=== PATIENT | female | born 1990 | race Caucasian/White ===

== ENCOUNTER 2016-06-22 13:32 | Observation (INO) ==
[2016-06-22] MEDS: Ringers Solution, Lactated 1,000 ML ONE (14:07)
[2016-06-22 14:13] LABS: Basophils % 0.2 %; Eosinophils # 0.1 K/mcL (0.0-0.6); Eosinophils % 0.6 %; Hematocrit 35.7 % (35.3-44.9); Immature Granulocytes % 0.6 % (0-4); Lymphocytes % 7.8 %; Mean Corpuscular HGB Conc 36.4 g/dL (31.6-35.5); Mean Corpuscular Hemoglobin 32.5 pg (28.0-33.3); Mean Corpuscular Volume 89.3 fL (83.0-100.0); Mean Platelet Volume 9.9 fL (9.4-12.4); Monocytes # 0.7 K/mcL (0.0-1.3); Neutrophils # 11.3 K/mcL (1.6-8.9); Platelet Count 244 K/mcL (140-400); Red Cell Distribution Width 12.2 % (11.5-14.5); Segmented Neutrophils % 85.8 %
[2016-06-22 14:15] LABS: Bilirubin,Urine Negative (Negative); Blood,Urine Negative (Negative); Clarity,Urine Cloudy (Clear); Color,Urine Yellow (Yellow); Glucose,Urine (UA) Normal (Normal); Ketones,Urine Negative (Negative); Leukocyte Esterase,Urine Moderate (Negative); Nitrite,Urine Negative (Negative); PH,Urine 6.5 pH Units (5.0-8.0); Protein,Urine Negative (Neg-Trace); Specific Gravity,Urine 1.018 (1.010-1.025); Urobilinogen,Urine Normal (Normal)
[2016-06-22] MEDS ORDERED: Ringers Solution, Lactated 1,000 ML IVC SCH (14:15)
[2016-06-22 14:16] LABS: Bacteria,Urine Few per hpf (None-Few); Hyaline Casts,Urine None Seen per lpf (None-Few); RBC,Urine 0-3 per hpf (0-3); Squamous Epithelial Cell,Urine Many per lpf (None-Few)
[2016-06-22 14:38] LABS: Yeast,Urine Few per hpf (None Seen)
[2016-06-22 14:39] LABS: Renal Epithelial Cells,Urine Few per hpf (None-Few); Transitional Epi Cells,Urine Few per hpf (None-Few)
--- NOTE | 2016-06-22 14:47 | OB/GYN History & Physical ---
Date of Encounter: 06/22/16 Time of Encounter: 14:45 Assessment and Plan (1) 32 weeks gestation of Current visit: Yes Status: Acute admit for observation (2) labor in third trimester Current visit: Yes Status: Acute IV hydration EFM and toco monitoring Steroids Qualifiers: labor delivery status: without delivery Qualified Code(s): O60.03 - labor without delivery, third trimester History of Present Illness Chief complaint: contractions HPI: Ms. Corbett is a 26 year old female at 32w2d presents to labor and delivery for labor evaluation. Patient reported contractions in the office. SVE in office per Elsie CNM was 1/70%. Patient reports she has been sick with the flu and has diarrhea that started last night. Patient reports +FM, denies LOF or VB. Patient denies any urinary symptoms. Past Med Surg Social Fam HX - Past Medical History Source: patient Medical history: no medical history Psychiatric history: no psych history - Social History Smoking Status: Never smoker Alcohol use: none Drug use: none Occupational status: employed Current living situation: Home - Independent Activity Level: Independent ambulation Recent Out of Country Travel Within the Last 8 Weeks: No Exposure or Possible Exposure to Illness During Travel: No - Family History Father Adopted: [place]: Tony Living Status: Still Living Hx Family Cardiac Disorders: Yes (heart disease) Hx Family Respiratory Disorders: No Hx Family Cancer: No Hx Family GI Disorders: No Hx Family Genitourinary Disorders: No Hx Family Endocrine Disorder: No Hx Family Musculoskeletal Disorders: No Hx Family Neuromuscular Disorders: No Hx Family Neurologic Disorders: No Hx Family HEENT Disorders: No Hx Family Autoimmune Disorders: No Hx Family Reproductive Disorders: No Hx Family Psychosocial Disorders: No Hx Family Medical Disorders: No Obstetrical History - Pregnancies : 1 Para: 0 Term: 0 : 0 Ab's: 0 Livin Medications and Allergies Claritin 06/22/16 [History] Multi Tablet 06/22/16 [History] Allergies Sulfa (Sulfonamide Antibiotics) Allergy (Verified 06/22/16 13:59) Rash Review of System OB - Constitutional Constitutional ROS IM: no chills, no fatigue, no headache(s), no weakness - Cardiovascular Cardiovascular: no chest pain, no leg edema, no lightheadedness, no palpitations , no syncope - Gastrointestinal Gastrointestinal: cramping, diarrhea, no abdominal pain, no constipation, no heartburn, no vomiting - Genitourinary Genitourinary: no abnormal vaginal bleeding, no dysuria, no flank pain, no hematuria, no urinary urgency, no vaginal discharge, no vaginal odor Exam - Constitutional Constitutional: well developed, well nourished, no acute distress, average body habitus - HEENT HEENT: Normocephaly, Mucus Membranes Moist - Neck Neck exam: full ROM, supple - Lungs Respiratory exam: CTAB - Cardiovascular Cardiovascular exam: RRR, +S1, +S2 - Abdomen Abdomen: Present: bowel sounds normal, gravid, non tender - Extremities Extremities exam: normal capillary refill, normal inspection Deep Tendon Reflex Grade: 2+ Normal - Vagina Vagina: Present: normal moisture - Cervix Dilation: 1 (per elsie in office) Effacement: 70 - Uterus Uterus exam: Present: normal size, normal contour - Comments Comments: FHR 135 bpm moderate variability +15x15 accels no decels noted. Cat. 1 tracing. Irregular contractions. Results Result Diagrams: 06/22/16 14:01 Abnormal lab results WBC 13.2 K/mcL (4.3-11.1) H 06/22/16 14:01 MCHC 36.4 g/dL (31.6-35.5) H 06/22/16 14:01 Neutrophils # 11.3 K/mcL (1.6-8.9) H 06/22/16 14:01 Ur Specimen Adequacy See below A 06/22/16 13:48 Urine Clarity Cloudy (Clear) A 06/22/16 13:48 Ur Leukocyte Esterase Moderate (Negative) H 06/22/16 13:48 Urine Microscopic WBC 3-5 per hpf (0-3) H 06/22/16 13:48 Ur Squamous Epith Cells Many per lpf (None-Few) H 06/22/16 13:48 Urine Yeast Few per hpf (None Seen) H 06/22/16 13:48 Ur Culture Indicated? YES (NO) A 06/22/16 13:48 All other labs normal. - VTE Reasons for not Prescribing Prophylaxis: Treatment not Indicated - Low risk for VTE
[2016-06-22] MEDS: Betamethasone Acet/SodPhos 6 MG/ML MDV IM SCH (15:11)
--- NOTE | 2016-06-22 15:41 | Discharge Summary ---
Date of Encounter: 06/22/16 Time of Encounter: 15:40 - Discharge Diagnosis (1) 32 weeks gestation of Priority: Secondary Status: Acute Comments: patient here for observation (2) labor in third trimester Priority: Primary Status: Acute Comments: Patient given betamethasone today will receive second dose in office tomorrow Qualifiers: labor delivery status: without delivery Qualified Code(s): O60.03 - labor without delivery, third trimester - Discharge Medications Home Medications: Claritin 06/22/16 [History] Multi Tablet 06/22/16 [History] Allergies/Adverse Reactions: Allergies Sulfa (Sulfonamide Antibiotics) Allergy (Verified 06/22/16 13:59) Rash Data Procedures and tests throughout hospitalization: Laboratory Tests 06/22/16 06/22/16 13:48 14:01 WBC 13.2 H RBC 4.00 Hgb 13.0 Hct 35.7 MCV 89.3 MCH 32.5 MCHC 36.4 H RDW 12.2 Plt Count 244 MPV 9.9 Immature Gran % 0.6 Seg Neutrophils % 85.8 Lymphocytes % 7.8 Monocytes % 5.0 Eosinophils % 0.6 Basophils % 0.2 Neutrophils # 11.3 H Lymphocytes # 1.0 Monocytes # 0.7 Eosinophils # 0.1 Basophils # 0.0 Ur Specimen Adequacy See below A Urine Color Yellow Urine Clarity Cloudy A Urine pH 6.5 Ur Specific [place]cher 1.018 Urine Protein Negative Urine Glucose (UA) Normal Urine Ketones Negative Urine Blood Negative Urine Nitrite Negative Urine Bilirubin Negative Urine Urobilinogen Normal Ur Leukocyte Esterase Moderate H Urine Microscopic RBC 0-3 Urine Microscopic WBC 3-5 H Ur Squamous Epith Cells Many H Ur Transition Epith Cell Few Ur Renal Epithelial Cell Few Urine Bacteria Few Hyaline Casts None Seen Urine Yeast Few H Ur Culture Indicated? YES A Labs on day of discharge: Labs from last 24 hours 06/22/16 06/22/16 14:01 13:48 WBC 13.2 H RBC 4.00 Hgb 13.0 Hct 35.7 MCV 89.3 MCH 32.5 MCHC 36.4 H RDW 12.2 Plt Count 244 MPV 9.9 Immature Gran % 0.6 Seg Neutrophils % 85.8 Lymphocytes % 7.8 Monocytes % 5.0 Eosinophils % 0.6 Basophils % 0.2 Neutrophils # 11.3 H Lymphocytes # 1.0 Monocytes # 0.7 Eosinophils # 0.1 Basophils # 0.0 Ur Specimen Adequacy See below A Urine Color Yellow Urine Clarity Cloudy A Urine pH 6.5 Ur Specific Belcher 1.018 Urine Protein Negative Urine Glucose (UA) Normal Urine Ketones Negative Urine Blood Negative Urine Nitrite Negative Urine Bilirubin Negative Urine Urobilinogen Normal Ur Leukocyte Esterase Moderate H Urine Microscopic RBC 0-3 Urine Microscopic WBC 3-5 H Ur Squamous Epith Cells Many H Ur Transition Epith Cell Few Ur Renal Epithelial Cell Few Urine Bacteria Few Hyaline Casts None Seen Urine Yeast Few H Ur Culture Indicated? YES A Date of admission: 06/22/16 13:32 Primary care physician: PCP NO Discharging clinician: Colleen Escamilla Anticipated date of discharge: 06/22/16 - Patient Status Disposition: Home, Self-Care Condition: Good Functional capacity at discharge: independent ambulation - Discharge Instructions Follow Up With: FABIOLA,PCP [Primary Care Provider] - Elsie Holt CNM [Non-Partnered Physician] - - Diet and Activity Activity: increase activity as tolerated Diet: regular diet Hospital Course [employer] Hospital course: Patient sent over for observation due to being dilated 1 cm. Patient reports irregular contractions less than 5 an hour but patient reports diarrhea for the past 24 hours. Patient was given 1000cc LR and betamethasone. Patient is scheduled in office tomorrow for 2nd dose. After 2 hours of observation no cervical change was made and patient reports feeling much better. Patient educated on PTL and signs and symptoms to report to provider. Patient denies any questions or concerns. Time Attestation: Total time spent providing and/or coordinating discharge services: Time Spent: Less than 30 minutes Exam - Constitutional General appearance IM: A&O X 3, pleasant, answers questions appropriately - Respiratory Respiratory exam: Present: CTAB - Cardiovascular Cardiovascular exam IM: Present: RRR, +S1, +S2 - Additional comments: SVE /-2 - Neurological Exam Neurological exam: oriented X3, reflexes normal - VTE Reasons for not Prescribing Prophylaxis: Treatment not Indicated - Low risk for VTE
== END 2016-06-22 15:55 | disposition home or self-care (01) ==
LOC: 1NENULAB
PROVIDERS: ADMIT Obstetrics & Gynecology; ATTEND Obstetrics & Gynecology

== ENCOUNTER 2016-08-08 02:15 | Inpatient (IN) ==
--- NOTE | 2016-08-07 23:58 | OB/GYN History & Physical ---
Date of Encounter: 08/07/16 Time of Encounter: 23:55 Assessment and Plan (1) 38 weeks gestation of Current visit: Yes Status: Acute admit for labor evaluation admit for delivery if cervical changes are made. (2) Uterine contractions during Current visit: Yes Status: Acute labor evaluation and RNsT History of Present Illness Chief complaint: contractions HPI: Ms. Corbett is a 26 year old female G1PO at 38w6d with EDC of 08/15/2016 presents to labor and delivery with complaints of contractions and bloody show. Patient reports +FM. Denies LOF. Patient reports she was dilated /-2 cm at last check. Blood type: A Positive, Rubella: Immune, Hep B: Negative, GBS: Negative. Past Med Surg Social Fam HX - Past Medical History Source: patient Medical history: no medical history Psychiatric history: no psych history - Past Surgical History Surgical History: no surgical history - Social History Smoking Status: Never smoker Alcohol use: none Drug use: none Occupational status: employed Current living situation: Home - Independent Activity Level: Independent ambulation Recent Out of Country Travel Within the Last 8 Weeks: No Exposure or Possible Exposure to Illness During Travel: No - Family History Father Adopted: No Living Status: Still Living Hx Family Cardiac Disorders: Yes (heart disease) Hx Family Respiratory Disorders: No Hx Family Cancer: No Hx Family GI Disorders: No Hx Family Endocrine Disorder: No Hx Family Neuromuscular Disorders: No Hx Family Neurologic Disorders: No Hx Family HEENT Disorders: No Hx Family Autoimmune Disorders: No Obstetrical History - Pregnancies : 1 Para: 0 Term: 0 : 0 Ab's: 0 Livin Medications and Allergies Claritin 06/22/16 [History] Multi Tablet 06/22/16 [History] Allergies Sulfa (Sulfonamide Antibiotics) Allergy (Verified 06/22/16 13:59) Rash Review of System OB - Constitutional Constitutional ROS IM: no chills, no fever(s), no headache(s) - Cardiovascular Cardiovascular: no chest pain, no palpitations, no rapid heart rate, no slow heart rate, no syncope - Respiratory Respiratory: no dyspnea - Gastrointestinal Gastrointestinal: no abdominal pain, no diarrhea, no heartburn, no nausea, no vomiting - Genitourinary Genitourinary: no abnormal vaginal bleeding, no difficulty urinating, no dysuria , no urinary frequency, no urinary hesitancy, no vaginal discharge, no vaginal odor, no vaginal pruritis Exam - Constitutional Constitutional: well developed, well nourished, no acute distress, average body habitus - HEENT HEENT: Normocephaly, Mucus Membranes Moist - Neck Neck exam: full ROM, supple - Lungs Respiratory exam: CTAB - Cardiovascular Cardiovascular exam: RRR, +S1, +S2 - Abdomen Abdomen: Present: bowel sounds normal, gravid, non tender - Extremities Extremities exam: full ROM, normal capillary refill, normal inspection Deep Tendon Reflex Grade: 2+ Normal - Cervix Dilation: 4 (per RN) Effacement: 100 Station: -1 - Uterus Uterus exam: Present: normal size, normal contour - Anus/Rectum Anus/Rectum: Present: normal perianal skin (FHR 135 bpm moderate variability + 15x15 accels no decels noted. Contractions 3-5 min apart. Cat. 1 tracing.) Results All other labs normal. - VTE Reasons for not Prescribing Prophylaxis: Treatment not Indicated - Low risk for VTE
[2016-08-08] MEDS ORDERED: Naloxone 0.4 MG/ML INJ IVP PRN (02:50)
[2016-08-08] MEDS ORDERED: Famotidine 20 MG/2 ML VIAL IVP PRN (02:50)
[2016-08-08] MEDS ORDERED: Ringers Solution, Lactated 1,000 ML IVC SCH (03:00)
[2016-08-08 03:56] LABS: Basophils % 0.2 %; Eosinophils # 0.1 K/mcL (0.0-0.6); Eosinophils % 0.6 %; Hematocrit 35.8 % (35.3-44.9); Hemoglobin 12.7 g/dL (11.5-15.4); Immature Granulocytes % 1.1 % (0-4); Lymphocytes # 2.4 K/mcL (0.6-4.6); Lymphocytes % 15.2 %; Mean Corpuscular HGB Conc 35.5 g/dL (31.6-35.5); Mean Corpuscular Volume 90.2 fL (83.0-100.0); Mean Platelet Volume 10.7 fL (9.4-12.4); Monocytes % 6.4 %; Neutrophils # 12.3 K/mcL (1.6-8.9); Platelet Count 234 K/mcL (140-400); Red Blood Count 3.97 M/mcL (3.82-4.97); Red Cell Distribution Width 12.6 % (11.5-14.5); Segmented Neutrophils % 76.5 %
[2016-08-08] MEDS ORDERED: *HR* Nalbuphine 20 MG/ML AMPUL IVP PRN (06:34)
[2016-08-08] MEDS ORDERED: *HR* Oxytocin 10 UNIT/ML VIAL IM ONE ×2 (07:00→13:23)
[2016-08-08] MEDS ORDERED: Lidocaine 1% 20 ML MDV ONE (10:17)
[2016-08-08] MEDS ORDERED: Ibuprofen 600 MG TABLET PO PRN ×2 (10:49→12:50)
--- NOTE | 2016-08-08 10:58 | OB/GYN Procedure Note ---
Delivery - Delivery Date: 08/08/16 Provider: Elsie Holt Intrapartum events: none Delivery induction: none Delivery augmentation: rupture of membranes Delivery monitor: external FHT, external uterine Anesthesia: none Estimated Blood Loss: 150 - Infant (s) A Infant Delivery Date: 08/08/16 Infant Delivery Time: 10:09 Presentation: vertex Position: CALLIE Route of delivery: Gender: Male Viability: Viable Pounds: 7 Ounces: 5 Weight Gram: 3330 kg at 1 minute: 9 at 5 mins: 9 Shoulder Dystocia: not encountered Specimens collected: cord blood Placenta: spontaneous Cord: nuchal cord, nuchal reduced - Repair Episiotomy: none Laceration Description: Perineal - 1st Degree - Complications Delivery complications: none - Disposition Mom disposition: stable in LDR [place] disposition: stable in LDR - Comments Comments: Pt presented in active labor at 39 weeks gestation and progressed normally to complete dilation. She underwent of viable male weighing 7lbs 5oz with apgars 9 and 9. After a 3 minute delay the cord was clamped and cut. The placenta was spontaneous and intact and a first degree perineal laceration was repaired with 3-0 Vicryl. Mother and baby stable in kangaroo care following delivery.
[2016-08-08] MEDS ORDERED: Acetaminophen 325 MG TABLET PO PRN (12:50)
[2016-08-08] MEDS ORDERED: Benzocaine/Menthol 56 GM AEROSOL SPRAY TP PRN (13:23)
[2016-08-08] MEDS ORDERED: Lanolin 28 GM TUBE TP PRN (13:23)
[2016-08-08] MEDS ORDERED: Measles/Mumps/Rubella Vacc 0.5 ML VIAL SQ PRN (13:23)
[2016-08-08] MEDS: Ibuprofen 600 MG TABLET PO PRN ×2 (13:37→19:37)
[2016-08-09] MEDS: Ibuprofen 600 MG TABLET PO PRN ×2 (00:26→08:41)
[2016-08-09] MEDS ORDERED: Prenatal Vit/FA 1 EACH TABLET PO SCH (09:00)
[2016-08-09 09:10] VITALS: BP 128/79
--- NOTE | 2016-08-09 09:43 | Discharge Summary ---
Date of Encounter: 08/09/16 Time of Encounter: 09:41 - Discharge Diagnosis (1) (normal spontaneous vaginal delivery) Priority: Primary Status: Acute Comments: Pt meeting milestones. - Discharge Medications Home Medications: Claritin 06/22/16 [History] Multi Tablet 06/22/16 [History] Benzocaine/Menthol [place] [Dermoplast [place]] 1 appl TP QID PRN #0 aerosol [Rx] Docusate [Colace] 100 mg PO BID capsule 08/09/16 [Rx] Ibuprofen [Motrin] 600 mg PO Q6HR PRN #0 tablet 08/09/16 [Rx] Lanolin 1 appl TP Q4HR PRN #0 tube 08/09/16 [Rx] Allergies/Adverse Reactions: Allergies Sulfa (Sulfonamide Antibiotics) Allergy (Verified 06/22/16 13:59) Rash Data Procedures and tests throughout hospitalization: Laboratory Tests 08/08/16 03:53 WBC 16.0 H RBC 3.97 Hgb 12.7 Hct 35.8 MCV 90.2 MCH 32.0 MCHC 35.5 RDW 12.6 Plt Count 234 MPV 10.7 Immature Gran % 1.1 Seg Neutrophils % 76.5 Lymphocytes % 15.2 Monocytes % 6.4 Eosinophils % 0.6 Basophils % 0.2 Neutrophils # 12.3 H Lymphocytes # 2.4 Monocytes # 1.0 Eosinophils # 0.1 Basophils # 0.0 Date of admission: 08/08/16 04:26 Primary care physician: PCP FABIOLA Consults: 08/08/16 12:50 Consult to Wood Engraver [CONS] Routine Comment: Vaginal delivery, consult needed Discharging clinician: Elsie Holt Anticipated date of discharge: 08/09/16 - Patient Status Disposition: Home, Self-Care Condition: Good Overall status at discharge: patient is progressing back to baseline - Discharge Instructions Follow Up With: FABIOLA,PCP [Primary Care Provider] - Elsie Holt CNM [Non-Partnered Physician] - - Diet and Activity Activity: increase activity as tolerated Diet: advance to your usual diet Hospital Course Reason for admission: active labor Delivery: Episiotomy: none Laceration: 1st degree Other procedures: none complications: none Discharge diagnosis: IUP at term delivered baby: male Hospital course: - Delivery Date: 08/08/16 Provider: Elsie Holt Intrapartum events: none Delivery induction: none Delivery augmentation: rupture of membranes Delivery monitor: external FHT, external uterine Anesthesia: none Estimated Blood Loss: 150 - Infant (s) Infant A Infant Delivery Date: 08/08/16 Infant Delivery Time: 10:09 Presentation: vertex Position: CALLIE Route of delivery: Gender: Male Viability: Viable Pounds: 7 Ounces: 5 Weight Gram: 3330 kg at 1 minute: 9 at 5 mins: 9 Shoulder Dystocia: not encountered Specimens collected: cord blood Placenta: spontaneous Cord: nuchal cord, nuchal reduced - Repair Episiotomy: none Laceration Description: Perineal - 1st Degree - Complications Delivery complications: none - Disposition Mom disposition: home PPD#1 disposition: home with mother, Time Attestation: Total time spent providing and/or coordinating discharge services: Exam - Constitutional Vitals: Temp Pulse Resp BP Pulse Ox 98.2 F 81 14 128/79 98 08/09/16 09:08 08/09/16 09:08 08/09/16 09:08 08/09/16 09:08 08/09/16 03:45 General appearance IM: A&O X 3, pleasant - Respiratory Respiratory exam: Present: CTAB - Cardiovascular Cardiovascular exam IM: Present: RRR, +S1, +S2 - GI/Abdominal GI/Abdominal exam IM: soft - Uterine Tone: Firm - Extremities Exam Extremities exam IM: Present: normal inspection, pedal edema (slight edema of feet bilaterally) - Neurological Exam Neurological exam: normal gait, oriented X3 - Psychiatric Additional comments: Pt reports good mood
== END 2016-08-09 14:30 | disposition home or self-care (01) | DRG 775 ==
LOC: 1NENULAB → 1NENUOBS 12:34
PROVIDERS: ADMIT Advanced Practice Midwife; ATTEND Advanced Practice Midwife

== ENCOUNTER 2019-03-28 18:40 | Observation (INO) ==
[2019-03-28] MEDS ORDERED: Acetaminophen 325 MG TABLET PO PRN (22:20)
[2019-03-28] MEDS ORDERED: Ringers Solution, Lactated 1,000 ML IVC SCH (22:30)
[2019-03-29 05:40] LABS: Basophils % 0.6 %; Eosinophils # 0.2 K/mcL (0.0-0.6); Eosinophils % 3.5 %; Hematocrit 32.9 % (35.3-44.9); Hemoglobin 11.6 g/dL (11.5-15.4); Immature Granulocytes % 0.6 % (0-4); Lymphocytes # 2.2 K/mcL (0.6-4.6); Lymphocytes % 34.2 %; Mean Corpuscular HGB Conc 35.3 g/dL (31.6-35.5); Mean Corpuscular Hemoglobin 32.6 pg (28.0-33.3); Mean Corpuscular Volume 92.4 fL (83.0-100.0); Mean Platelet Volume 9.9 fL (9.4-12.4); Monocytes # 0.6 K/mcL (0.0-1.3); Monocytes % 8.7 %; Neutrophils # 3.3 K/mcL (1.6-8.9); Platelet Count 354 K/mcL (140-400); Red Blood Count 3.56 M/mcL (3.82-4.97); Red Cell Distribution Width 12.4 % (11.5-14.5); Segmented Neutrophils % 52.4 %; White Blood Count 6.3 K/mcL (4.3-11.1)
[2019-03-29 06:04] LABS: BUN/Creatinine Ratio 19 (6-26); Blood Urea Nitrogen 14 mg/dL (6-20); Calcium 8.5 mg/dL (8.6-10.3); Carbon Dioxide 25 mEq/L (23-29); Chloride 106 mEq/L (98-107); Glucose 89 mg/dL (70-105); Osmolality,Calculated 292 (280-300); Potassium 3.4 mEq/L (3.5-5.1); Sodium 141 mEq/L (136-145); eGFR For African Americans > 60 (> 60); eGFR For Non-African Americans > 60 (> 60)
[2019-03-29 11:51] VITALS: BP 122/75
== END 2019-03-29 15:08 | disposition home or self-care (01) ==
LOC: 3BNU → SUATTDRO 20:24
PROVIDERS: ADMIT Student in an Organized Health Care Education/Training Program; ATTEND Family Medicine